=== PATIENT | male | born 1990 | race African-American/Black ===

== ENCOUNTER 2019-10-12 13:22 | Emergency (ER) | payer SELFPAY ==
--- NOTE | 2019-10-12 14:19 | ER Document Report ---
ED Medical Screen (RME) - General Chief Complaint: Lower Abdominal Pain Stated Complaint: RIGHT FLANK PAIN Time Seen by Provider: 10/12/19 14:16 Mode of Arrival: Ambulatory Information source: Patient Notes: 29-year-old male with no prior history presents complaining of right-sided flank pain for the past couple months increased pain recently. Denies trauma. Denies fever vomiting diarrhea. Reports it hurts more after he voids. Denies hematuria. Denies history of kidney stones. I have greeted and performed a rapid initial assessment of this patient. A comprehensive ED assessment and evaluation of the patient, analysis of test results and completion of the medical decision making process will be conducted by additional ED providers. TRAVEL OUTSIDE OF THE [place] IN LAST 30 DAYS: No - Related Data Allergies/Adverse Reactions: No Known Allergies Allergy (Verified 10/12/19 14:12) Home Medications: denies Past Medical History - Social History Chew tobacco use (# tins/day): No Frequency of alcohol use: Social Drug Abuse: None Physical Exam - Vital signs Vitals: Temp Pulse Resp BP Pulse Ox 98.9 F 82 16 116/82 99 10/12/19 13:28 10/12/19 13:28 10/12/19 13:28 10/12/19 13:28 10/12/19 13:28 Course - Vital Signs Vital signs: Temp Pulse Resp BP Pulse Ox 98.9 F 82 16 116/82 99 10/12/19 13:28 10/12/19 13:28 10/12/19 13:28 10/12/19 13:28 10/12/19 13:28
[2019-10-12 14:58] LABS: APPEARANCE,URINE SLIGHTLY-CLOUDY; BILIRUBIN,URINE NEGATIVE (NEGATIVE); GLUCOSE, URINE NEGATIVE (NEGATIVE); KETONES,URINE TRACE mg/dL (NEGATIVE); LEUKOCYTE ESTERASE,URINE NEGATIVE (NEGATIVE); NITRITE,URINE NEGATIVE (NEGATIVE); PROTEIN,URINE 30 mg/dL (NEGATIVE)
[2019-10-12 14:59] LABS: COLOR,URINE YELLOW
[2019-10-12 15:02] LABS: ABSOLUTE BASOPHILS # (AUTO) 0.1 10^3/uL (0.0-0.2); ABSOLUTE EOSINOPHILS # (AUTO) 0.3 10^3/uL (0.0-0.6); ABSOLUTE LYMPHOCYTES (AUTO) 2.1 10^3/uL (0.5-4.7); ABSOLUTE MONOCYTES (AUTO) 0.8 10^3/uL (0.1-1.4); ABSOLUTE NEUT (AUTO) 3.9 10^3/uL (1.7-8.2); BASOPHILS % (AUTO) 0.8 % (0-2); HEMATOCRIT 40.5 % (37.9-51.0); LYMPHOCYTES % (AUTO) 28.8 % (13-45); MEAN CORPUSCULAR HEMOGLOBIN 29.9 pg (27.0-33.4); MEAN CORPUSCULAR HGB CONC 34.5 g/dL (32.0-36.0); MEAN CORPUSCULAR VOLUME 87 fl (80-97); MONOCYTES % (AUTO) 11.6 % (3-13); PLATELET COUNT 278 10^3/uL (150-450); RED BLOOD COUNT 4.68 10^6/uL (4.35-5.55); RED CELL DISTRIBUTION WIDTH 13.3 % (11.5-14.0); SEGMENTED NEUTROPHILS % (AUTO) 54.8 % (42-78); TOTAL CELLS COUNTED % (AUTO) 100 %; WHITE BLOOD COUNT 7.2 10^3/uL (4.0-10.5)
[2019-10-12 15:18] LABS: ALBUMIN 4.4 g/dL (3.5-5.0); ALKALINE PHOSPHATASE 70 U/L (38-126); ANION GAP 7 (5-19); ASPARTATE AMINO TRANSFERASE 28 U/L (17-59); BILIRUBIN,DIRECT 0.2 mg/dL (0.0-0.4); BILIRUBIN,TOTAL 0.5 mg/dL (0.2-1.3); BLOOD UREA NITROGEN 14 mg/dL (7-20); CALCIUM 10.1 mg/dL (8.4-10.2); CARBON DIOXIDE 30 mmol/L (22-30); CHLORIDE 104 mmol/L (98-107); GLUCOSE 71 mg/dL (75-110); POTASSIUM 4.6 mmol/L (3.6-5.0); TOTAL PROTEIN 7.8 g/dL (6.3-8.2)
--- NOTE | 2019-10-12 16:08 | RADIOLOGY REPORT (SQ) ---
EXAM DESCRIPTION: U/S RETROPERITON (RENAL/AORTA) COMPLETED DATE/TIME: 10/12/2019 3:49 pm REASON FOR STUDY: flank pain COMPARISON: None. TECHNIQUE: Dynamic and static grayscale images acquired of the kidneys and bladder and recorded on P ACS. Additional selected color Doppler and spectral images recorded. LIMITATIONS: None. FINDINGS: RIGHT KIDNEY: Normal size. Normal echogenicity. No solid or suspicious masses. No hydronep hrosis. No calcifications. LEFT KIDNEY: Normal size. Normal echogenicity. No solid or suspicious masses. No hydronephrosis. No calcifications. BLADDER: No masses. OTHER FINDINGS: No other significant finding. IMPRESSION: NORMAL RENAL AND BLADDER ULTRASOUND. TECHNICAL DOCUMENTATION: JOB ID: [id number] [employer]- All Rights Reserved Reading location - IP/workstation name: [email or web address]
--- NOTE | 2019-10-12 16:29 | ER Document Report ---
ED General - General Chief Complaint: Lower Abdominal Pain Stated Complaint: RIGHT FLANK PAIN Time Seen by Provider: 10/12/19 14:16 Primary Care Provider: [facility] [Provider Group] - Follow up in 3-5 days LAURENCE GAVIN MD [COMMUNITY BASED STAFF] - Follow up in 3-5 days Mode of Arrival: Ambulatory Notes: 29-year-old male presents with right flank pain that is been ongoing for the last couple months, worse the last few weeks. Patient denies any nausea/vomiting/diarrhea/constipation, urinary symptoms, fever, chest pain, or shortness of breath. Upon further evaluation patient states he is actually having right lower quadrant pain. Patient states pain is worse with movement and standing for long periods of time. Better with rest. TRAVEL OUTSIDE OF THE [place] IN LAST 30 DAYS: No - Related Data Allergies/Adverse Reactions: No Known Allergies Allergy (Verified 10/12/19 14:12) Home Medications: denies Past Medical History - General Information source: Patient - Social History Smoking Status: Never Smoker Chew tobacco use (# tins/day): No Frequency of alcohol use: Social Drug Abuse: None Family History: None Patient has suicidal ideation: No Patient has homicidal ideation: No Review of Systems - Review of Systems Notes: Constitutional: Negative for fever. HENT: Negative for sore throat. Eyes: Negative for visual changes. Cardiovascular: Negative for chest pain. Respiratory: Negative for shortness of breath. Gastrointestinal: Positive for abdominal pain. Negative for vomiting or diarrhea. Genitourinary: Negative for dysuria. Musculoskeletal: Negative for back pain. Skin: Negative for rash. Neurological: Negative for headaches, weakness or numbness. 10 point ROS negative except as marked above and in HPI. Physical Exam - Vital signs Vitals: Temp Pulse Resp BP Pulse Ox 98.9 F 82 16 116/82 99 10/12/19 13:28 10/12/19 13:28 10/12/19 13:28 10/12/19 13:28 10/12/19 13:28 - Notes Notes: GENERAL: Well-appearing, well-nourished and in no acute distress. HEAD: Atraumatic, normocephalic. EYES: Extraocular movements intact, sclera anicteric, conjunctiva are normal. NECK: Normal range of motion, supple without lymphadenopathy or JVD. LUNGS: Breath sounds clear to auscultation bilaterally and equal. No wheezes rales or rhonchi. HEART: Regular rate and rhythm without murmurs, rubs or gallops. ABDOMEN: Soft, tenderness to RLQ. No guarding, no rebound. No masses appreciated. No CVA tenderness. EXTREMITIES: Normal range of motion, no pitting or edema. No clubbing or cyanosis. NEUROLOGICAL: Cranial nerves II through XII grossly intact. Normal speech, normal gait. PSYCH: Normal mood, normal affect. SKIN: Warm, Dry, normal turgor, no rashes or lesions noted. Course - Re-evaluation Re-evalutation: 10/12/19 nontoxic, well-appearing. Abdomen soft, tenderness to right lower quadrant. No CVA tenderness. Patient denies any urinary symptoms. Denies nausea/vomiting/diarrhea/constipation. CBC, CMP, UA, ultrasound of kidneys were ordered out in triage. CBC is within normal limits with no leukocytosis or anemia. CMP is within normal limits with a mildly low glucose of 71. UA shows no hematuria or infection. Ultrasound of kidneys is normal. Due to point tenderness to right lower quadrant CT abdomen/pelvis with IV contrast was ordered. Patient offered analgesics however declining at this time. 10/12/19 17:21 CT abdomen/pelvis is negative. 10/12/19 Discussed all results with pt. Pt given bentyl to try. If does not wo rk, instructed to take Tylenol/Motrin. Strict return precautions. Close follow up with PCP. Pt voices understanding and agrees with plan of care. - Vital Signs Vital signs: Temp Pulse Resp BP Pulse Ox 97.7 F 85 14 110/73 100 10/12/19 17:38 10/12/19 17:38 10/12/19 17:38 10/12/19 17:38 10/12/19 17:38 - Laboratory Result Diagrams: 10/12/19 14:25 10/12/19 14:25 Laboratory results interpreted by me: 10/12/19 10/12/19 14:25 14:25 Glucose 71 L Urine Protein 30 H Urine Ketones TRACE H Urine Urobilinogen 4.0 H Urine Ascorbic Acid 40 H Discharge - Discharge Clinical Impression: Abdominal pain Qualifiers: Abdominal location: right lower quadrant Qualified Code(s): R10.31 - Right lower quadrant pain Condition: Stable Disposition: HOME, SELF-CARE Instructions: Abdominal Pain ([facility]) Additional Instructions: Your CT abdomen pelvis is normal. Your lab work is within normal limits. Please take ibuprofen or Tylenol for the pain. Please follow-up with your primary care doctor or 1 of the clinics listed in 3 to 5 days. Return immediately to ER if you start having any worsening symptoms, including increasing abdominal pain, nausea/vomiting, fever, blood in your urine, burning when peeing, inability to urinate, diarrhea/constipation, or any other symptoms that are concerning to you. Prescriptions: Dicyclomine HCl [Bentyl 20 mg Tablet] 20 mg PO QID #40 tablet Forms: Return to Work Referrals: LAURENCE GAVIN MD [COMMUNITY BASED STAFF] - Follow up in 3-5 days [facility] [Provider Group] - Follow up in 3-5 days
--- NOTE | 2019-10-12 17:13 | RADIOLOGY REPORT (SQ) ---
EXAM DESCRIPTION: CT ABD/PELVIS WITH IV ONLY COMPLETED DATE/TIME: 10/12/2019 4:57 pm REASON FOR STUDY: RLQ pain COMPARISON: None. TECHNIQUE: CT scan of the abdomen and pelvis performed using helical scanning technique with dynamic intravenous contrast injection. No oral contrast. Images reviewed with lung, soft tissue, and bone windows. Reconstructed coronal and sagittal MPR images reviewed. Delayed images for evaluation of the urinary system also acquired. All images stored on PACS. All CT scanners at this facility use dose modulation, iterative reconstruction, and/or weight based d osing when appropriate to reduce radiation dose to as low as reasonably achievable (ALARA). [facility]: Dose Right [facility]: CareDose [facility]: Dose Right [facility]: Teradose 4D [facility]: [employer] CONTRAST TYPE AND DOSE: contrast/concentration: Isovue 350.00 mg/ml; Total Contrast Delivered: 94.0 ml; Total Saline Delivered: 54.0 ml RENAL FUNCTION: BUN 14 creatinine 1.02. RADIATION DOSE: CT Rad equipment meets quality standard of care and radiation dose reduction techniq ues were employed. CTDIvol: 7.1 - 9.8 mGy. DLP: 913 mGy-cm.. LIMITATIONS: None. FINDINGS: LOWER CHEST: No significant findings. No nodules or infiltrates. LIVER: Normal size. No masses. No dilated ducts. SPLEEN: Normal size. No focal lesions. PANCREAS: No masses. No significant calcifications. No adjacent inflammation or peripancreatic fluid collections. Pancreatic duct not dilated. GALLBLADDER: No identified stones by CT criteria. No inflammatory changes to suggest cholecystitis. ADRENAL GLANDS: No significant masses or asymmetry. RIGHT KIDNEY AND URETER: No solid masses. No significant calcifications. No hydronephrosis or hyd roureter. LEFT KIDNEY AND URETER: No solid masses. No significant calcifications. No hydronephrosis or hydr oureter. AORTA AND VESSELS: No aneurysm. No dissection. Renal arteries, SMA, celiac without stenosis. RETROPERITONEUM: No retroperitoneal adenopathy, hemorrhage or masses. BOWEL AND PERITONEAL CAVITY: No masses or inflammatory changes. No free fluid or peritoneal masses. APPENDIX: Normal. PELVIS: No mass. No free fluid. Normal bladder. ABDOMINAL WALL: No masses. No hernias. BONES: No significant or acute findings. OTHER: No other significant finding. IMPRESSION: NO SIGNIFICANT OR ACUTE FINDING IN THE ABDOMEN OR PELVIS ON CT SCAN WITH IV CONTRAST. TECHNICAL DOCUMENTATION: JOB ID: [id number] Quality ID # [id number]: Final reports with documentation of one or more dose reduction techniques (e.g., Au tomated exposure control, adjustment of the mA and/or kV according to patient size, use of iterative reconstruction technique) 2010 [employer]- All Rights Reserved Reading location - IP/workstation name: [email or web address]
[2019-10-12 17:39] VITALS: BP 110/73
== END 2019-10-12 17:39 | disposition home or self-care (01) ==
LOC: ER 13:22
DX: R10.31 Right lower quadrant pain (principal); R10.813 Right lower quadrant abdominal tenderness
CPT/HCPCS: 36415; 74177; 76770; 80053; 81001; 85025; 99284

== ENCOUNTER 2019-10-23 12:27 | Emergency (ER) | payer OTHER ==
[2019-10-23 12:30] VITALS: BP 125/68
--- NOTE | 2019-10-23 13:26 | ER Document Report ---
HPI - HPI Time Seen by Provider: 10/23/19 13:24 Notes: 29-year-old male patient presenting to the emergency department with request for suture removal. Patient had sutures placed approximately 8 days ago. Patient denies any symptoms, states the wounds are healing well. - REPRODUCTIVE Reproductive: DENIES: : Past Medical History - General Information source: Patient - Social History Smoking Status: Never Smoker Frequency of alcohol use: None Drug Abuse: None Family History: None - Medical History Medical History: Negative Surgical Hx: Negative - Immunizations Immunizations up to date: Yes Vertical Provider Document - CONSTITUTIONAL Notes: PHYSICAL EXAMINATION: GENERAL: Well-appearing, well-nourished and in no acute distress. HEAD: Atraumatic, normocephalic. EYES: Pupils equal round extraocular movements intact, conjunctiva are normal. ENT: Nares patent NECK: Normal range of motion LUNGS: No respiratory distress Musculoskeletal: Normal range of motion NEUROLOGICAL: Normal speech, normal gait. PSYCH: Normal mood, normal affect. SKIN: Healing laceration noted to right forearm and right thumb. - INFECTION CONTROL TRAVEL OUTSIDE OF THE [place] IN LAST 30 DAYS: No Course - Re-evaluation Re-evalutation: Sutures removed, patient tolerated well, 18 sutures removed in total. - Vital Signs Vital signs: Temp Pulse Resp BP Pulse Ox 98.4 F 80 16 125/68 99 10/23/19 12:30 10/23/19 12:30 10/23/19 12:30 10/23/19 12:30 10/23/19 12:30 Discharge - Discharge Clinical Impression: Encounter for removal of sutures Condition: Stable Disposition: HOME, SELF-CARE Additional Instructions: Your sutures were removed today. You can continue to put a thin layer of triple antibiotic ointment to the area for the next 1 to 2 weeks. Keep clean and dry. Watch for signs of infection to include increased redness, red streaking, drainage or development of fever. If these occur return to the emergency department.
== END 2019-10-23 13:45 | disposition home or self-care (01) ==
LOC: ER 12:27
DX: S51.811D Laceration without foreign body of right forearm, subsequent encounter (principal); S61.011D Laceration without foreign body of right thumb without damage to nail, subsequent encounter; X58.XXXD Exposure to other specified factors, subsequent encounter
CPT/HCPCS: 99281

== ENCOUNTER 2019-11-06 14:05 | Emergency (ER) | payer OTHER ==
[2019-11-06 14:35] VITALS: BP 118/73
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
== END 2019-11-06 15:30 | disposition home or self-care (01) ==
LOC: ER 14:05
DX: S51.811D Laceration without foreign body of right forearm, subsequent encounter (principal); L08.9 Local infection of the skin and subcutaneous tissue, unspecified; X58.XXXD Exposure to other specified factors, subsequent encounter
CPT/HCPCS: 99282

== ENCOUNTER 2020-07-27 19:51 | Emergency (ER) | payer OTHER ==
[2020-07-27 20:06] VITALS: BP 143/68
--- NOTE | 2020-07-27 20:10 | ER Document Report ---
ED Extremity Problem, Lower - General Chief Complaint: Knee Pain Stated Complaint: KNEE PAIN Time Seen by Provider: 07/27/20 19:52 Notes: CHIEF COMPLAINT: Left knee pain HPI: 30-year-old male presenting for left knee pain for 2 days. No trauma. States he did play football in high school believes that this may be just a result of injury sustained back then. Took no medications for his symptoms. Patient walked a decent distance to the emergency department tonight for evaluation. States he had to call out of work tonight because of the knee issue requesting a work note ROS: See HPI - all other systems were reviewed and are otherwise negative Constitutional: no fever Integumentary: no rash Allergy: no hives Musculoskeletal: + extremity pain or swelling Neurological: no numbness/tingling, no weakness MEDICATIONS: I agree with the patient medications as charted by the RN. ALLERGIES: I agree with the allergies as charted by the RN. PAST MEDICAL HISTORY/PAST SURGICAL HISTORY: Reviewed and agree as charted by RN. SOCIAL HISTORY: Reviewed and agree as charted by RN. FAMILY HISTORY: No significant familial comorbid conditions directly related to patient complaint EXAM: Reviewed vital signs as charted by RN. CONSTITUTIONAL: Alert and oriented and responds appropriately to questions. Well-appearing; well-nourished HEAD: Normocephalic; atraumatic EYES: Conjunctivae clear, sclerae non-icteric ENT: normal nose; no rhinorrhea; moist mucous membranes NECK: Supple without meningismus CARD: RRR; no murmurs, no clicks, no rubs, no gallops; symmetric distal pulses RESP: Normal chest excursion without splinting or tachypnea ABD/GI: non-distended BACK: The back appears normal EXT: Normal ROM in all joints; no cyanosis, no visible effusion to the left knee. No ballottement of the patella. Mild tenderness over the anterior knee on palpation. Negative anterior drawer sign. No laxity on varus or valgus rotation. Gait is normal SKIN: Normal color for age and race; warm; dry; good turgor; no acute lesions noted NEURO: Moves all extremities equally; Motor and sensory function intact PSYCH: The patient's mood and manner are appropriate. Grooming and personal hygiene are appropriate. MDM: 30-year-old male 2 days of nontraumatic left knee pain. Will obtain an x- ray but if negative anticipate discharge home on anti-inflammatories to follow- up with orthopedics patient primarily requesting a work note TRAVEL OUTSIDE OF THE [place] IN LAST 30 DAYS: No - Related Data Allergies/Adverse Reactions: No Known Allergies Allergy (Verified 10/12/19 14:12) Past Medical History - Social History Smoking Status: Never Smoker Chew tobacco use (# tins/day): No Frequency of alcohol use: Occasional Drug Abuse: None Family History: None - Immunizations Immunizations up to date: Yes Physical Exam - Vital signs Vitals: Temp 98.5 F 07/27/20 20:00 Course - Re-evaluation Re-evalutation: 07/27/20 20:23 On my review of the patient's knee x-ray I do not visualize a bony injury. Will discharge on anti-inflammatories orthopedic referral - Vital Signs Vital signs: Temp Pulse Resp BP Pulse Ox 98.5 F 96 18 143/68 H 99 07/27/20 20:00 07/27/20 20:06 07/27/20 20:06 07/27/20 20:06 07/27/20 20:06 Discharge - Discharge Clinical Impression: Knee pain, right Qualifiers: Chronicity: acute Qualified Code(s): M25.561 - Pain in right knee Condition: Stable Disposition: HOME, SELF-CARE Additional Instructions: X-ray imaging did not show acute findings today. Take the anti-inflammatories for pain, ice the knee twice daily for 5 to 10 minutes at a time do not place ice directly on the skin. Follow-up closely with orthopedics for reevaluation call for appointment Prescriptions: Diclofenac Sodium [Voltaren 50 Mg Maury.] 50 mg PO BID #20 tablet. Forms: Return to Work Referrals: DENNIS ROWLAND JR, [ACTIVE PROVISIONAL STAFF] - Follow up as needed
[2020-07-27] MEDS ORDERED: NAPROXEN 250 MG TABLET PO ONE (20:23)
--- NOTE | 2020-07-27 21:02 | RADIOLOGY REPORT (SQ) ---
EXAM DESCRIPTION: XR KNEE 4 OR MORE VIEWS COMPLETED DATE/TME: 07/27/2020 20:02 CLINICAL HISTORY: 30 years, Male, pain COMPARISON: None. NUMBER OF VIEWS: 4 TECHNIQUE: AP, lateral, bilateral oblique views of the right knee were obtained. LIMITATIONS: None. FINDINGS: There is no bone, joint, or definite soft tissue abnormality. IMPRESSION: Negative study copyright 2010 [employer]- All Rights Reserved
== END 2020-07-27 20:35 | disposition home or self-care (01) ==
LOC: ER 19:51
DX: M25.561 Pain in right knee (principal); M25.562 Pain in left knee
CPT/HCPCS: 99283